=== PATIENT | female | born 1985 | race Two or more races ===

== ENCOUNTER 2016-06-12 22:36 | Emergency (ER) | payer MEDICAID ==
[~2016-06-12] VITALS: Ht 167.6 cm; Wt 68.0 kg
[2016-06-12] MEDS ORDERED: LORAZEPAM INJ 2 MG/ML VIAL ONE (23:22)
[2016-06-12] MEDS ORDERED: ONDANSETRON 4 MG TAB.RAPDIS ONE (23:25)
[2016-06-12] MEDS ORDERED: HYDROCODONE/APAP 10/325MG 1 EA TABLET ONE (23:26)
[2016-06-12] MEDS ORDERED: HYDROCODONE/APAP 10/325MG 1 EA TABLET PO ONE (23:30)
[2016-06-12] MEDS ORDERED: LORAZEPAM 1 MG TABLET ONE (23:30)
[2016-06-12] MEDS ORDERED: ONDANSETRON 4 MG TAB.RAPDIS SL ONE (23:30)
[2016-06-12] MEDS ORDERED: LIDOCAINE 1%-EPI 1:100,000 50 ML VIAL IJ ONE (23:30)
[2016-06-12] MEDS: LORAZEPAM INJ 2 MG/ML VIAL IM ONE (23:31)
[2016-06-12] MEDS: LORAZEPAM 1 MG TABLET PO ONE ×2 (23:34→23:35)
[2016-06-12] MEDS ORDERED: LIDOCAINE 1%-EPI 1:100,000 20 ML VIAL ONE (23:51)
[2016-06-13] MEDS ORDERED: LORAZEPAM INJ 2 MG/ML VIAL ONE (00:26)
[2016-06-13] MEDS: LORAZEPAM INJ 2 MG/ML VIAL IM ONE (00:38)
[2016-06-13 01:25] VITALS: BP 118/72
== END 2016-06-13 01:25 | disposition home or self-care (01) ==
LOC: ER 22:43
DX: L02.412 Cutaneous abscess of left axilla (principal); L73.2 Hidradenitis suppurativa
CPT/HCPCS: 10060; 96372; 99283; A4606; A6407; J2060 ×2; J3490 ×2; Q0162; Z7610

== ENCOUNTER 2017-03-11 02:04 | Emergency (ER) | payer MEDICAID, OTHER ==
[~2017-03-11] VITALS: Ht 167.6 cm; Wt 59.0 kg
--- NOTE | 2017-03-11 02:22 | NUR ---
TO BED 3 A 32 YO FEMALE PT BIBSELF C/O URINARY RETENTION X 1 DAY WITH OVERALL ABD PAIN. NAD NOTED, VSS, AMBULATORY. 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 GOWNED. COMFORT MEASURES RENDERED.
--- NOTE | 2017-03-11 02:27 | NUR ---
inserted traylor cath aseptically, drained 250cc of pale yellow urine. Patient saray procedure well, and reports "feeling better" after.
--- NOTE | 2017-03-11 02:47 | NUR ---
Dr Marquez at bedside to eval.
--- NOTE | 2017-03-11 03:15 | NUR ---
Patient discharged to home in stable condition. Borjas bag in place, draining well via gravity. Written and verbal after care instructions given. Patient verbalizes understanding of instruction. Patient is ambulatory with steady gait, no further complaints.
[2017-03-11 03:17] VITALS: BP 140/74
== END 2017-03-11 03:17 | disposition home or self-care (01) ==
LOC: ER 02:06
DX: R33.9 Retention of urine, unspecified (principal); Z98.890 Other specified postprocedural states
CPT/HCPCS: 51702; 99284; A4606; Z7610

== ENCOUNTER 2017-03-11 03:28 | Emergency (ER) | payer OTHER ==
[~2017-03-11] VITALS: Ht 167.6 cm; Wt 59.0 kg
--- NOTE | 2017-03-11 03:45 | NUR ---
TO BED 3 A 32 YO FEMALE PT BIBSELF; WAS JUST SEEN IN THE ER AND NOW STATING SHE IS HAVING HORRIBLE ABD PAIN. PATIENT WAS JUST TREATED FOR ACUTE URINARY RETENTION, TRACEY AND LEG BAG IN PLACE, DRAINING WELL. PER PATIENT, THE PAIN JUST GOT WORSE WHILE SHE WAS STANDING UP WAITING FOR HER RIDE. PATIENT HAS THE SAME ABDL PAIN DUE TO HX OF PELVIC PROLAPSE, "PAIN JUST WORST TODAY." NAD NOTED. VSS. COMFORT MEASURES RENDERED. DR ROSA AT BEDSIDE TO [place].
[2017-03-11] MEDS ORDERED: KETOROLAC TROMETHAMINE INJ 60 MG/2 ML VIAL IM ONE ×2 (03:46→04:00)
--- NOTE | 2017-03-11 03:53 | NUR ---
MEDICATED PATIENT ORDERED BY DR ROSA.
--- NOTE | 2017-03-11 04:34 | NUR ---
PATIENT TO CT SCAN.
[2017-03-11 05:17] LABS: APPEARANCE,URINE CLEAR (CLEAR); COLOR,URINE Light yellow (YELLOW); PH,URINE 5.5 (5.0-8.0)
[2017-03-11 05:18] LABS: BILIRUBIN,URINE NEGATIVE (NEGATIVE); BLOOD, URINE NEGATIVE Ery/uL (NEGATIVE); KETONES,URINE NEGATIVE (NEGATIVE); LEUKOCYTE ESTERASE ,URINE NEGATIVE (NEGATIVE); NITRITE, URINE NEGATIVE (NEGATIVE); PROTEIN,URINE NEGATIVE (NEGATIVE); UGLUCOSE NEGATIVE (NEGATIVE); UROBILINOGEN,URINE 0.2 EU/dL (0.2)
--- NOTE | 2017-03-11 05:21 | NUR ---
Patient discharged to home in stable condition. Written and verbal after care instructions given. Patient verbalizes understanding of instruction. Patient is ambulatory with steady gait, no further complaints.
[2017-03-11 05:22] VITALS: BP 118/74
== END 2017-03-11 05:22 | disposition home or self-care (01) ==
LOC: ER 03:30
DX: R10.30 Lower abdominal pain, unspecified (principal); Z98.890 Other specified postprocedural states
CPT/HCPCS: 74176; 81001; 84703; 96372; 99285; A4606; J1885; Z7610; 81000-TC

== ENCOUNTER 2017-03-12 12:24 | Emergency (ER) | payer MEDICAID, OTHER ==
[~2017-03-12] VITALS: Ht 165.1 cm; Wt 63.5 kg
--- NOTE | 2017-03-12 12:45 | NUR ---
PRESENTS TO ER STATING SHE FEELS IMPACTED- AWAITING FOR RECTOSEAL SX. WITH FC DUE TO PELVIC PROLAPSE AND WANTS FC TO BE DC'D. A/OX 4. BREATHING EVEN AND UNLABORED. NO SOB. VITALS STABLE. SAFETY AND COMFORT MEASURES IN PLACE. AWAITING MD ORDERS.
[2017-03-12] MEDS ORDERED: NA PHOS,M-B/NA PHOS,DI-BA 1 EA ENEMA RC ONE ×2 (12:59→13:00)
--- NOTE | 2017-03-12 13:18 | NUR ---
PER DR. CHADWICK, CANCEL FLEET ENEMA AND ADMINISTER TAP WATER ENEMA VIA GRAVITY.
--- NOTE | 2017-03-12 13:40 | NUR ---
TAP WATER ENEMA ADMINISTERED VIA GRAVITY, PER MD ORDERS.
[2017-03-12 14:23] VITALS: BP 124/82
--- NOTE | 2017-03-12 14:24 | NUR ---
Patient discharged to home in stable condition. Written and verbal after care instructions given. Patient verbalizes understanding of instruction.
== END 2017-03-12 14:23 | disposition home or self-care (01) ==
LOC: ER 12:30
DX: K59.00 Constipation, unspecified (principal); Z98.890 Other specified postprocedural states
CPT/HCPCS: 99284; A4606; Z7610

== ENCOUNTER 2017-03-16 14:05 | Emergency (ER) | payer MEDICAID, OTHER ==
[~2017-03-16] VITALS: Ht 165.1 cm; Wt 63.5 kg
--- NOTE | 2017-03-16 14:13 | NUR ---
GENERALIZED BODY PAIN, THROAT PAIN x 1 DAY. NO RECENT INJURIES
[2017-03-16] MEDS ORDERED: KETOROLAC TROMETHAMINE INJ 30 MG/ML VIAL IV ONE (14:30)
--- NOTE | 2017-03-16 14:30 | NUR ---
RAC #20 IV ACCESS. BLOOD SAMPLE COLLECTED SENT TO LAB
[2017-03-16 14:36] LABS: BASOPHILS % (AUTO) 0.4 % (0.0-2.0); EOSINOPHILS # (AUTO) 0.1 /CMM (0.0-0.7); EOSINOPHILS % (AUTO) 0.9 % (0.0-6.0); HEMATOCRIT 41 % (33-45); HEMOGLOBIN 13.9 g/dL (11.5-14.8); LYMPHOCYTES # (AUTO) 0.6 /CMM (0.8-4.8); MEAN CORPUSCULAR HEMOGLOBIN 30 PG (26.0-33.0); MEAN CORPUSCULAR HGB CONC 34 g/dl (31.0-36.0); MEAN CORPUSCULAR VOLUME 88 fL (82-100); MONOCYTES # (AUTO) 0.5 /CMM (0.1-1.30); MONOCYTES % (AUTO) 7.1 % (2.0-12.0); NEUTROPHILS # (AUTO) 5.9 /CMM (1.8-8.9); NEUTROPHILS % (AUTO) 83.6 % (43.0-81.0); PLATELET COUNT (AUTO) 157 /CMM (150-450); RDW COEFFICIENT OF VARIATION 11.6 (11.5-15.0); WHITE BLOOD COUNT (AUTO) 7.1 K/uL (4.3-11.0)
[2017-03-16 14:46] LABS: CALCIUM, SERUM 8.9 mg/dL (8.5-10.1); CREATININE 0.7 mg/dL (0.6-1.3); POTASSIUM 3.6 mmol/L (3.5-5.1)
[2017-03-16] MEDS ORDERED: KETOROLAC TROMETHAMINE 15 MG/ML VIAL ONE (14:48)
[2017-03-16 14:52] LABS: ALBUMIN 4.1 g/dL (3.4-5.0); BILIRUBIN,DIRECT 0.1 mg/dL (0.0-0.2); BILIRUBIN,TOTAL 0.5 mg/dL (0.2-1.0); TOTAL PROTEIN, SERUM 7.1 g/dL (6.4-8.2)
--- NOTE | 2017-03-16 14:57 | NUR ---
PT UNABLE TO GIVE URINE SAMPLE MARTI MADE AWARE
[2017-03-16] MEDS: IV NS 0.9% 1,000 ML IV ONE ×2 (15:36→16:12)
--- NOTE | 2017-03-16 15:36 | NUR ---
POWER ORIGINATOR AT BEDSIDE
--- NOTE | 2017-03-16 15:44 | NUR ---
PT REFUSED IV FLUIDS . REFUSE TO GIVE URINE SAMPLE . MADE AWARE.
[2017-03-16] MEDS ORDERED: LIDOCAINE VISCOUS 2% UD 15 ML UDC ONE (16:14)
--- NOTE | 2017-03-16 16:19 | NUR ---
Patient discharged to home in stable condition. Written and verbal after care instructions given. Patient verbalizes understanding of instruction.
--- NOTE | 2017-03-16 16:19 | NUR ---
IV removed. Catheter intact and site benign. Pressure and 4x4 applied to site. No bleeding noted.
[2017-03-16 16:21] VITALS: BP 118/67
[2017-03-16] MEDS ORDERED: LIDOCAINE VISCOUS 2% UD 15 ML UDC MM ONE (16:30)
== END 2017-03-16 16:24 | disposition home or self-care (01) ==
LOC: ER 14:08
DX: M54.2 Cervicalgia (principal); M54.9 Dorsalgia, unspecified
CPT/HCPCS: 36415; 70360; 76770; 80048; 80076; 83690; 84703; 85025; 96374; 99285; A4606; J1885; J7030; Z7610

== ENCOUNTER 2017-09-10 12:02 | Emergency (ER) | payer OTHER ==
[~2017-09-10] VITALS: Ht 165.1 cm; Wt 65.8 kg
[2017-09-10 12:12] VITALS: BP 116/83
[2017-09-10 13:01] LABS: BASOPHILS % (AUTO) 0.8 % (0.0-2.0); EOSINOPHILS % (AUTO) 0.8 % (0.0-6.0); HEMATOCRIT 40 % (33-45); HEMOGLOBIN 13.5 g/dL (11.5-14.8); LYMPHOCYTES # (AUTO) 1.5 /CMM (0.8-4.8); LYMPHOCYTES % (AUTO) 31.3 % (20.0-44.0); MEAN CORPUSCULAR HGB CONC 34 g/dl (31.0-36.0); MEAN CORPUSCULAR VOLUME 84 fL (82-100); MONOCYTES # (AUTO) 0.3 /CMM (0.1-1.30); MONOCYTES % (AUTO) 7.2 % (2.0-12.0); NEUTROPHILS # (AUTO) 2.9 /CMM (1.8-8.9); NEUTROPHILS % (AUTO) 59.9 % (43.0-81.0); PLATELET COUNT (AUTO) 251 /CMM (150-450); RDW COEFFICIENT OF VARIATION 12.5 (11.5-15.0); RED BLOOD CELL COUNT(AUTO) 4.76 MIL/uL (4.0-5.2); WHITE BLOOD COUNT (AUTO) 4.7 K/uL (4.3-11.0)
[2017-09-10 13:08] LABS: CALCIUM, SERUM 8.8 mg/dL (8.5-10.1); CREATININE 0.7 mg/dL (0.6-1.3); POTASSIUM 3.8 mmol/L (3.5-5.1)
[2017-09-10 13:13] LABS: BILIRUBIN,TOTAL 0.4 mg/dL (0.2-1.0); TOTAL PROTEIN, SERUM 7.5 g/dL (6.4-8.2)
[2017-09-10] MEDS ORDERED: EMTRICITABINE/TENOFOVIR 1 TAB PO ONE (13:30)
[2017-09-10] MEDS ORDERED: RALTEGRAVIR POTASSIUM 400 MG TABLET PO ONE (13:30)
== END 2017-09-10 13:41 | disposition home or self-care (01) ==
LOC: ER 12:09
DX: Z20.6 Contact with and (suspected) exposure to human immunodeficiency virus [HIV] (principal); Z98.890 Other specified postprocedural states; Z72.0 Tobacco use
CPT/HCPCS: 36415; 80053-TC; 80074; 85025-TC; A4606; Z7610

== ENCOUNTER 2017-12-20 16:39 | Emergency (ER) | payer OTHER ==
[~2017-12-20] VITALS: Ht 160 cm; Wt 61.2 kg
[2017-12-20 16:49] VITALS: BP 111/73
--- NOTE | 2017-12-20 16:56 | NUR ---
AAO4, C/O PAINFUL CYST TO LEFT UNDER ARM X 2 DAYS. AFBERILE. VSS NAD RR EVEN AND UNLABORED. PENDING ER MD SUÁREZ
--- NOTE | 2017-12-20 17:04 | NUR ---
PT LEFT WITHOUT HER DC PAPERS. BIENVENIDO BRYAN NOTIFIED
== END 2017-12-20 17:05 | disposition home or self-care (01) ==
LOC: ER 16:43
DX: L73.8 Other specified follicular disorders (principal)
CPT/HCPCS: 99283; A4606; Z7610

== ENCOUNTER 2020-01-17 02:04 | Emergency (ER) | payer OTHER ==
[~2020-01-17] VITALS: Ht 165.1 cm; Wt 90.7 kg
[2020-01-17 02:11] VITALS: BP 175/112
[2020-01-17] MEDS ORDERED: oxyCODONE/APAP (5/325 MG) 1 UDTAB TABLET ONE (02:21)
[2020-01-17] MEDS: oxyCODONE/APAP (5/325 MG) 1 UDTAB TABLET PO ONE (02:36)
[2020-01-17] MEDS: oxyCODONE IR immediate release 5 MG PO PRN (02:41)
== END 2020-01-17 02:54 | disposition home or self-care (01) ==
LOC: ER 02:04
DX: F11.23 Opioid dependence with withdrawal (principal); G89.29 Other chronic pain; Z98.890 Other specified postprocedural states

== ENCOUNTER 2020-01-20 21:04 | Emergency (ER) | payer MEDICAID, OTHER ==
[~2020-01-20] VITALS: Ht 170.2 cm; Wt 95.3 kg
--- NOTE | 2020-01-20 21:25 | NUR ---
PT AAOX4. BIBRA C/O DIZZINESS AND VOMITTING AFTER TAKING XANAX AND FLUCONOZOLE. PT PLACED ON MONITOR AND PULSE OX. VSS. NO ACUTE DISTRESS NOTED. AWAITING MD FOR EVAL AND ORDERS.
[2020-01-20] MEDS ORDERED: ONDANSETRON HCL/PF 4 MG/2 ML VIAL ONE (21:43)
[2020-01-20 21:57] LABS: BASOPHILS % (AUTO) 0.5 % (0.0-2.0); EOSINOPHILS % (AUTO) 0.9 % (0.0-6.0); HEMATOCRIT 42 % (33-45); HEMOGLOBIN 14.1 g/dL (11.5-14.8); LYMPHOCYTES # (AUTO) 1.9 /CMM (0.8-4.8); LYMPHOCYTES % (AUTO) 20.3 % (20.0-44.0); MEAN CORPUSCULAR HGB CONC 33 g/dl (31.0-36.0); MEAN CORPUSCULAR VOLUME 83 fL (82-100); MONOCYTES # (AUTO) 0.5 /CMM (0.1-1.30); MONOCYTES % (AUTO) 5.7 % (2.0-12.0); NEUTROPHILS # (AUTO) 6.6 /CMM (1.8-8.9); NEUTROPHILS % (AUTO) 72.6 % (43.0-81.0); PLATELET COUNT (AUTO) 263 /CMM (150-450); RED BLOOD CELL COUNT(AUTO) 5.06 MIL/uL (4.0-5.2); WHITE BLOOD COUNT (AUTO) 9.1 K/uL (4.3-11.0)
--- NOTE | 2020-01-20 21:57 | NUR ---
LINE INITIATED, LABS SENT.
[2020-01-20] MEDS ORDERED: IV NS 0.9% 1,000 ML BAG IV ONE (22:00)
[2020-01-20] MEDS ORDERED: ONDANSETRON HCL/PF 4 MG/2 ML VIAL IV ONE (22:00)
[2020-01-20 22:10] LABS: CALCIUM, SERUM 8.9 mg/dL (8.5-10.1); CREATININE 0.7 mg/dL (0.6-1.3); POTASSIUM 3.9 mmol/L (3.5-5.1)
[2020-01-20 22:15] LABS: ALBUMIN 3.8 g/dL (3.4-5.0); BILIRUBIN,DIRECT 0.1 mg/dL (0.0-0.2); BILIRUBIN,TOTAL 0.2 mg/dL (0.2-1.0); TOTAL PROTEIN, SERUM 7.7 g/dL (6.4-8.2)
--- NOTE | 2020-01-20 22:53 | NUR ---
URINE COLLECTED AND SENT TO LAB
[2020-01-20 23:01] LABS: APPEARANCE,URINE Clear (CLEAR); BILIRUBIN,URINE Negative (NEGATIVE); BLOOD, URINE Small Ery/uL (NEGATIVE); COLOR,URINE Yellow (YELLOW); KETONES,URINE Negative (NEGATIVE); LEUKOCYTE ESTERASE ,URINE Negative (NEGATIVE); NITRITE, URINE Negative (NEGATIVE); PH,URINE 5.5 (5.0-8.0); PROTEIN,URINE Negative (NEGATIVE); UGLUCOSE Negative (NEGATIVE); UROBILINOGEN,URINE 0.2 EU/dL (0.2)
[2020-01-20 23:14] VITALS: BP 122/76
--- NOTE | 2020-01-20 23:14 | NUR ---
Note undone in ED - 01/20/20 at 2319 by EVICTOR IV removed. Catheter intact and site benign. Pressure and 4x4 applied to site. No bleeding noted.
--- NOTE | 2020-01-20 23:14 | NUR ---
Note santhosh in EDM - 01/20/20 at 2319 by JOHN Patient discharged to home in stable condition. Written and verbal after care instructions given. Patient verbalizes understanding of instruction and RX. Pt ambulated with steady gait. vss. No acute distress noted.
[2020-01-20 23:18] LABS: BACTERIA,URINE Few /HPF (None Seen); MUCUS,URINE Few /LPF (None Seen); RBC,URINE 0-2 /HPF (0-2); SQUAMOUS EPITHELIAL CELL,UR Few /HPF (None Seen); URINE AMORPHOUS URATE Few /HPF (None Seen); WBC,URINE 0-2 /HPF (0-3)
--- NOTE | 2020-01-20 23:34 | NUR ---
AWAITING FOR FLUIDS TO FINISH.
--- NOTE | 2020-01-21 00:01 | NUR ---
IV removed. Catheter intact and site benign. Pressure and 4x4 applied to site. No bleeding noted.
--- NOTE | 2020-01-21 00:01 | NUR ---
Patient discharged to home in stable condition. Written and verbal after care instructions given. Patient verbalizes understanding of instruction and RX. Pt ambulated with steady gait. vss.
== END 2020-01-21 00:02 | disposition home or self-care (01) ==
LOC: ER 21:05
DX: F41.9 Anxiety disorder, unspecified (principal); G89.29 Other chronic pain; R10.2 Pelvic and perineal pain; R11.2 Nausea with vomiting, unspecified; Z98.890 Other specified postprocedural states
CPT/HCPCS: 36415; 80048; 80076; 81001; 85025; 96361; 96374; 99283; J2405; J7030; 81000-TC

== ENCOUNTER 2020-10-21 04:33 | Emergency (ER) | payer MEDICAID ==
--- NOTE | 2020-10-21 05:15 | NUR ---
CALLED FOR TRIAGE, NO ANSWER
--- NOTE | 2020-10-21 05:19 | NUR ---
CALLED FOR TRIAGE. NO RESPONSE
--- NOTE | 2020-10-21 05:40 | NUR ---
CALLED FOR TRIAGE, NO ANSWER
== END 2020-10-21 05:41 | disposition left against medical advice (07) ==
LOC: ER 04:37
DX: Z02.89 Encounter for other administrative examinations (principal); Z53.21 Procedure and treatment not carried out due to patient leaving prior to being seen by health care provider

== ENCOUNTER 2021-04-28 12:37 | Emergency (ER) | payer MEDICAID ==
[~2021-04-28] VITALS: Ht 165.1 cm; Wt 70.3 kg
--- NOTE | 2021-04-28 13:33 | NUR ---
PT CAME TO ER C/O LOWER ABDOMINAL PAIN, REDNESS, SWELLING SINCE LAST NIGHT. PS 11/15. PT REPORTS HAD TUMMY TUCK ABOUT 6-8 MONTHS AGO. AAOX4, ABDOMEN IS DISTENDED AND TENDER TO TOUCH, RED BLISTERS ALONG SUTURE LINE OF TUMMY TUCK. ASSISTED TO ER BED 3, BED RAILS UP, PT MADE COMFORTABLE.
--- NOTE | 2021-04-28 13:42 | NUR ---
TO ER BED 3,NO APPARENT CHANGE IN CONDITION
--- NOTE | 2021-04-28 14:07 | NUR ---
BLOOD SAMPLE OBTAINED AND SENT TO LAB
--- NOTE | 2021-04-28 15:07 | NUR ---
urine sample obtained and sent to lab
--- NOTE | 2021-04-28 15:13 | NUR ---
PT SIGNED SCREEN FOR CT WAIVER.
--- NOTE | 2021-04-28 15:17 | NUR ---
pt taken to CT
--- NOTE | 2021-04-28 15:17 | NUR ---
PT TAKEN TO CT VIA [facility]
--- NOTE | 2021-04-28 15:27 | NUR ---
pt returned from CT
[2021-04-28 15:32] LABS: ALBUMIN 4.4 g/dL (3.4-5.0); BILIRUBIN,DIRECT 0.1 mg/dL (0.0-0.2); BILIRUBIN,TOTAL 0.7 mg/dL (0.2-1.0); CALCIUM, SERUM 9.5 mg/dL (8.5-10.1); CREATININE 0.7 mg/dL (0.6-1.3); TOTAL PROTEIN, SERUM 7.8 g/dL (6.4-8.2)
[2021-04-28 15:36] LABS: BILIRUBIN,URINE NEGATIVE (NEGATIVE); COLOR,URINE YELLOW (YELLOW); LEUKOCYTE ESTERASE ,URINE NEGATIVE (NEGATIVE); NITRITE, URINE NEGATIVE (NEGATIVE); PROTEIN,URINE NEGATIVE (NEGATIVE); UGLUCOSE NEGATIVE (NEGATIVE); UROBILINOGEN,URINE 0.2 EU/dL (0.2)
[2021-04-28 15:38] LABS: BASOPHILS % (AUTO) 0.2 % (0.0-2.0); EOSINOPHILS % (AUTO) 0.3 % (0.0-6.0); HEMATOCRIT 42 % (33-45); HEMOGLOBIN 14.2 g/dL (11.5-14.8); LYMPHOCYTES % (AUTO) 21.4 % (20.0-44.0); MEAN CORPUSCULAR HGB CONC 34 g/dl (31.0-36.0); MEAN CORPUSCULAR VOLUME 85 fL (82-100); MONOCYTES # (AUTO) 0.7 K/uL (0.1-1.30); MONOCYTES % (AUTO) 6.9 % (2.0-12.0); NEUTROPHILS # (AUTO) 6.7 K/uL (1.8-8.9); NEUTROPHILS % (AUTO) 71.2 % (43.0-81.0); PLATELET COUNT (AUTO) 297 K/uL (150-450); WHITE BLOOD COUNT (AUTO) 9.5 K/uL (4.3-11.0)
--- NOTE | 2021-04-28 16:12 | NUR ---
PT LAYING IN BED COMFORTABLY, VS STABLE
[2021-04-28 16:51] LABS: BACTERIA,URINE Rare /HPF (None Seen); RBC,URINE 0-4 /HPF (0-2); SQUAMOUS EPITHELIAL CELL,UR Rare /HPF (None Seen); WBC,URINE 0-2 /HPF (0-3)
--- NOTE | 2021-04-28 17:06 | NUR ---
IV removed. Catheter intact and site benign. Pressure and 4x4 applied to site. No bleeding noted.
--- NOTE | 2021-04-28 17:06 | NUR ---
Patient discharged to home in stable condition. Written and verbal after care instructions given. Patient verbalizes understanding of instruction.
[2021-04-28 17:46] VITALS: BP 130/83
== END 2021-04-28 17:36 | disposition home or self-care (01) ==
LOC: ER 12:40
DX: K91.872 Postprocedural seroma of a digestive system organ or structure following a digestive system procedure (principal)
CPT/HCPCS: 36415; 80048-TC; 80076-TC; 81001; 84703-TC; 85025-TC

== ENCOUNTER 2021-06-01 19:27 | Emergency (ER) | payer MEDICAID ==
[~2021-06-01] VITALS: Ht 167.6 cm; Wt 68.0 kg
[2021-06-01 20:18] VITALS: BP 141/105
== END 2021-06-01 20:43 | disposition left against medical advice (07) ==
LOC: ER 19:29
DX: Z53.21 Procedure and treatment not carried out due to patient leaving prior to being seen by health care provider (principal); R09.81 Nasal congestion; Z98.890 Other specified postprocedural states

== ENCOUNTER 2023-09-29 07:36 | Emergency (ER) | payer MEDICAID, OTHER ==
[~2023-09-29] VITALS: Ht 165.1 cm; Wt 75.3 kg
[2023-09-29] MEDS ORDERED: ACETAMINOPHEN ES 500 MG TABLET ONE (08:01)
[2023-09-29] MEDS ORDERED: OLANZAPINE ZYDIS 5 MG TAB.RAPDIS ONE (08:02)
[2023-09-29] MEDS: OLANZAPINE ZYDIS 5 MG TAB.RAPDIS PO ONE (08:10)
[2023-09-29] MEDS: ACETAMINOPHEN ES 500 MG TABLET PO ONE (08:10)
[2023-09-29 08:15] LABS: BASOPHILS # (AUTO) 0.1 K/uL (0.0-0.2); BASOPHILS % (AUTO) 0.8 % (0.0-2.0); EOSINOPHILS % (AUTO) 0.2 % (0.0-6.0); HEMATOCRIT 40 % (33-45); HEMOGLOBIN 13.3 g/dL (11.5-14.8); LYMPHOCYTES # (AUTO) 1.4 K/uL (0.8-4.8); MEAN CORPUSCULAR HEMOGLOBIN 28 PG (26.0-33.0); MEAN CORPUSCULAR HGB CONC 33 g/dl (31.0-36.0); MEAN CORPUSCULAR VOLUME 85 fL (82-100); MONOCYTES # (AUTO) 0.7 K/uL (0.1-1.30); MONOCYTES % (AUTO) 8.6 % (2.0-12.0); NEUTROPHILS # (AUTO) 5.9 K/uL (1.8-8.9); NEUTROPHILS % (AUTO) 73.4 % (43.0-81.0); PLATELET COUNT (AUTO) 291 K/uL (150-450); RED CELL DISTRIBUTION WIDTH 13.6 % (11.5-15.0)
[2023-09-29 08:22] LABS: CALCIUM, SERUM 8.2 mg/dL (8.5-10.1); CREATININE 0.7 mg/dL (0.6-1.3)
[2023-09-29 08:27] LABS: ALBUMIN 3.5 g/dL (3.4-5.0); BILIRUBIN,DIRECT 0.3 mg/dL (0.0-0.2); BILIRUBIN,TOTAL 0.9 mg/dL (0.2-1.0); TOTAL PROTEIN, SERUM 7.2 g/dL (6.4-8.2)
[2023-09-29 08:44] LABS: APPEARANCE,URINE CLEAR (CLEAR); BILIRUBIN,URINE NEGATIVE (NEGATIVE); BLOOD, URINE TRACE-INTA Ery/uL (NEGATIVE); COLOR,URINE YELLOW (YELLOW); KETONES,URINE 2+ mg/dL (NEGATIVE); LEUKOCYTE ESTERASE ,URINE NEGATIVE (NEGATIVE); NITRITE, URINE POSITIVE (NEGATIVE); PROTEIN,URINE NEGATIVE (NEGATIVE); UGLUCOSE NEGATIVE (NEGATIVE)
[2023-09-29 08:46] LABS: ADD URINE CULTURE YES; BACTERIA,URINE Few /HPF (None Seen); PREGNANCY TEST URINE QUAL NEGATIVE (NEGATIVE); RBC,URINE 0-2 /HPF (0-2); SQUAMOUS EPITHELIAL CELL,UR Rare /HPF (None Seen)
[2023-09-29] MEDS ORDERED: POTASSIUM CHLORIDE 20 MEQ TAB.PRT.SR PO ONE (08:46)
[2023-09-29] MEDS: POTASSIUM CHLORIDE 20 MEQ TAB.PRT.SR PO ONE (08:50)
[2023-09-29 09:05] LABS: BARBITURATE, URINE NEGATIVE (NEGATIVE); BENZODIAZEPINE, URINE NEGATIVE (NEGATIVE); CANNABINOID, URINE NEGATIVE (NEGATIVE); COCCAINE, URINE NEGATIVE (NEGATIVE); OPIATE, URINE NEGATIVE (NEGATIVE); PHENCYCLIDINE SCREEN,URINE NEGATIVE (NEGATIVE)
[2023-09-29 09:09] LABS: AMPHETAMINE, URINE POSITIVE (NEGATIVE)
[2023-09-29 09:44] VITALS: BP 121/60; TEMP 98.2; O2SAT 99
== END 2023-09-29 09:44 ==
LOC: ER 07:45
DX: R10.2 Pelvic and perineal pain (principal); F15.10 Other stimulant abuse, uncomplicated; F11.90 Opioid use, unspecified, uncomplicated
CPT/HCPCS: 36415; 71045-TC; 80048-TC; 80076-TC; 81001; 84703-TC; 85025-TC; 87086-TC; G0480

== ENCOUNTER 2024-06-03 20:09 | Emergency (ER) | payer OTHER ==
[~2024-06-03] VITALS: Ht 165.1 cm; Wt 65.8 kg
[~2024-06-03 20:09] MED LIST: NITR100C6 PO
[2024-06-03] MEDS ORDERED: NALO4SPR BNOSTRILS (20:12)
[2024-06-03 21:56] VITALS: BP 132/80; TEMP 98.6; O2SAT 100
== END 2024-06-03 21:59 | disposition home or self-care (01) ==
LOC: ER 20:11
DX: T40.601A Poisoning by unspecified narcotics, accidental (unintentional), initial encounter (principal); F19.10 Other psychoactive substance abuse, uncomplicated; Y92.89 Other specified places as the place of occurrence of the external cause

== ENCOUNTER 2025-01-06 20:58 | Emergency (ER) | payer MEDICAID ==
[~2025-01-06] VITALS: Ht 165.1 cm; Wt 68.0 kg
[~2025-01-06 20:58] MED LIST changes: +NALO4SPR BNOSTRILS
[2025-01-06 22:04] VITALS: BP 135/81; TEMP 98.5; O2SAT 95
[2025-01-06] MEDS ORDERED: SULF1TAB48 PO (22:28)
[2025-01-06] MEDS ORDERED: CEPH-570 PO (22:28)
== END 2025-01-06 23:15 | disposition home or self-care (01) ==
LOC: ER 21:02
DX: L03.90 Cellulitis, unspecified (principal); F17.200 Nicotine dependence, unspecified, uncomplicated; Z87.448 Personal history of other diseases of urinary system; Z87.42 Personal history of other diseases of the female genital tract; Z60.2 Problems related to living alone; Z87.2 Personal history of diseases of the skin and subcutaneous tissue